=== PATIENT | female | born 1970 | race Caucasian/White ===

== ENCOUNTER 2024-05-09 16:23 | Emergency (ER) | payer BC, SELFPAY ==
[2024-05-09 16:24] VITALS: BP 123/82
--- NOTE | 2024-05-09 16:47 | ED.GENMED ---
History of Present Illness
General
Chief Complaint: Flank Pain
Source: patient
Time Seen by Provider: 05/09/24 16:30
History of Present Illness
History of Present Illness:
53 year old female with no significant PMH who presents to the ER for evaluation of left lower flank/abdominal pain that started initially on Thursday as pain in the right flank only, no other symptoms thursday but now with nausea, pain 3/10,
non-radiating, constant, sharp and waxes/wanes. 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 Denies history of similar but does note a previous right sided pyelonephritis. Denies any other symptoms including fevers, chills, rigors, dysuria, urinary
frequency/urgency, hematuria, vomiting, bowel changes or any other concerns.
Past History
Past History
ED Past Medical History: Cancer (basal cell CA); Negative Asthma, HTN, Hypercholesterolemia or NIDDM
ED Past Surgical History: None
Social History
Tobacco: Non-smoker
Alcohol: Occasional
Drug: None
Personal: Other (Seperated)
Living: with family
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
Family History
Family History: Other (reviewed and non-contributory)
Review of Systems
Review of Systems
All Other Systems: ROS reviewed and negative except as documented in HPI and ROS
Phy Exam
Physical Exam
Physical Exam:
GENERAL: Alert , in no apparent distress but does look quite uncomfortable
EYE: clear conjunctiva b/l
HEAD: NCAT
ENT: mmm.
CARDIAC: Regular rate and rhythm .
LUNGS: Clear breath sounds bilaterally, no acute respiratory distress, no wheezes/rales/rhonchi
ABDOMEN: Soft, without focal tenderness, no r/g, mild left CVA ttp
NEUROLOGICAL: Alert and oriented
SKIN: Warm and dry, skin intact.
MUSCULOSKELETAL: No edema, well perfused.
PSYCH: Normal and appropriate interaction.
Scores
Heart Failure Risk
Heart Failure Risk Score: Not Applicable
Heart Score for Chest Pain Patients
STEMI patient?: Not applicable
Withdrawal Assessment of Alcohol
Withdrawal Assessment Completed?: Not applicable
Course
Orders/Labs/Results
Orders:
Orders
05/09/24 16:30
Test Result ONCE
05/09/24 16:45
CT Abd/pel Without Iv Or Oral Urgent
Comment:
Reason For Exam: left back/flank pain, nausea
0.9% Sodium Chloride 1000 ml [Nss] 1,000 ml IV BOLUS
Ketorolac [Toradol] 30 mg IV NOW STA
Ondansetron Injectable [Zofran] 4 mg IV NOW STA
05/09/24 16:58
Complete Blood Count/With Diff Urgent
Comprehensive Metabolic Panel Urgent
Lipase Urgent
05/09/24 17:50
Morphine Sulfate 2 mg .ROUTE .STK-MED ONE
Morphine Sulfate 2 mg IV NOW STA
05/09/24 19:11
Urinalysis Reflex To Culture Urgent
Date Specimen was Collected: 05/09/24
Time Specimen was Collected: 17:05
Abnormal Lab Results
05/09/24
16:58
WBC 3.7 L 10^3/uL
(4.8-10.8)
RBC 3.89 L 10^6/uL
(4.20-5.40)
Hct 35.1 L %
(37.0-47.0)
MCH 31.1 H pg
(27.0-31.0)
Monocytes % 9.8 H %
(1.7-9.3)
Glucose 100 H mg/dl
(70-99)
Total Protein 6.2 L g/dl
(6.3-8.2)
05/09/24 16:58
05/09/24 16:58
Vital Signs
Initial and Last Documented VS:
Initial Vital Signs
Temp Pulse Resp BP Pulse Ox
98.0 F 67 16 123/82 98
05/09/24 16:24 05/09/24 16:24 05/09/24 16:24 05/09/24 16:24 05/09/24 16:24
Last Documented Vital Signs
Temp Pulse Resp BP Pulse Ox
98.0 F 59 16 101/69 98
05/09/24 16:24 05/09/24 20:34 05/09/24 20:34 05/09/24 20:34 05/09/24 20:34
MDM/Problems Addressed
Differential Diagnosis Includes:
renal/ureteral colic, pyelonephritis, musculoskeletal back pain
MDM/Problems Addressed:
53-year-old female presenting to the emergency department for evaluation of left-sided flank pain, symptoms started on Thursday, relieved on Thursday and Thursday but then restarted again this morning and now accompanied with nausea. Based off
description of pain as well as location of suspected renal/ureteral colic to be the most likely diagnosis. Will check labs, urine and CT imaging. Pain control with Toradol, Zofran and fluids. Reassessment following.
*Radiology
Radiology exam reviewed: radiology read reviewed
*Pulse Oximetry
Patient hypoxic: no
*Critical Care Note
Total Time (30-74mins, 75-104mins- exclusive of procedures): Not Applicable
Patient Management
Escalation/DeEscalation of care consider admission/obs:
Patient CT scan shows no acute surgical complications nor kidney stones. There is large volume stool throughout the colon. Urinalysis without signs of infection. Patient's pain improved. Stable for discharge home and outpatient management.
Aware of return precautions to the ER.
ED Attending Note
-
Portions of this chart may have been created with voice recognition software.� Occasional wrong word or��sound alike� substitutions may have occurred due to the inherent limitations of voice recognition software.
Discharge Plan
Departure
Patient Disposition: Home (Routine Discharge)
Date of Disposition: 05/09/24
Time of Disposition: 19:23
Patient with high blood pressure during this ER visit?: No
Discharge Problem:
Abdominal pain
Instructions: Abdominal Pain
Prescriptions:
No Action
melatonin 3 MG tablet
3 mg PO HSPRN PRN (Reason: sleep)
cephalexin 500 MG capsule
500 mg PO QID Qty: 34 0RF
rizatriptan 10 MG tablet,disintegrating
10 mg PO DAILY PRN (Reason: severe headache) Qty: 10 0RF
Rx Instructions:
do not take more than 3 tabs in 24 hours
nitrofurantoin monohyd/m-cryst 100 MG capsule
100 mg PO BID Qty: 10 0RF
phenazopyridine 200 MG tablet
200 mg PO TID Qty: 20 0RF
levofloxacin 500 MG tablet
500 mg PO DAILY Qty: 7 0RF
Referrals:
NONE,* [Family Provider] -
Interventions
Interventions:
*Risk Screen - Suicide Last Done: 05/09/24 16:24
*General Assessment Last Done: 05/09/24 17:06
*Neglect/Abuse Screening Last Done: 05/09/24 16:24
ED- Fall Risk Assessment Last Done: 05/09/24 17:06
*Nursing Disposition Last Done: 05/09/24 20:41
RN-Zfbpxg-Mppfsqwvgu Assessment Last Done: 05/09/24 17:06
ED-Female Genitourinary Assessment Last Done: 05/09/24 17:06
Discharge Date and Time
Discharge Date/Time: 05/09/24 20:43
Print Language: SLOVENIAN
[2024-05-09] MEDS: ZOFRAN 4 MG IV (17:00)
[2024-05-09] MEDS: NSS 1000 IV (17:00)
[2024-05-09] MEDS: TORADOL 30 MG IV (17:01)
[2024-05-09 17:08] LABS: % Basophils 0.5 % (0-2); % Eosinophils 1.6 % (0-6); % Immature Granulocytes 0.3 % (0-0.5); % Lymphocytes 39.1 % (20.5-51.1); % Monocytes 9.8 % (1.7-9.3); % Neutrophils 48.7 % (42.2-75.2); Absolute Eosinophils 0.1 10^3/uL (0-0.7); Absolute Lymphocytes 1.4 10^3/uL (1.2-3.4); Absolute Monocytes 0.4 10^3/uL (0.1-0.6); Absolute Neutrophils 1.8 10^3/uL (1.4-6.5); Hematocrit 35.1 % (37.0-47.0); Hemoglobin 12.1 g/dL (12.0-16.0); Mean Corp Hgb Conc. 34.5 g/dL (33.0-37.0); Mean Corpuscular Hgb 31.1 pg (27.0-31.0); Mean Corpuscular Volume 90.2 fL (81.0-99.0); Nucleated Red Blood Cells % 0 %; Platelet Count 237 10^3/uL (130-400); Red Blood Cell Count 3.89 10^6/uL (4.20-5.40); Red Cell Dist. Width 12.8 % (11.5-14.5); White Blood Cell Count 3.7 10^3/uL (4.8-10.8)
[2024-05-09 17:43] LABS: ALT (SGPT) 28 U/L (0-35); AST (SGOT) 36 U/L (14-36); Albumin 4.1 g/dl (3.5-5.0); Alkaline Phosphatase 90 U/L (38-126); Blood Urea Nitrogen 17 mg/dl (7-17); Calcium 9.5 mg/dl (8.4-10.2); Carbon Dioxide 25 mmol/L (22-30); Chloride 105 mmol/L (98-107); Glucose 100 mg/dl (70-99); Lipase 79 U/L (23-300); Potassium 4.3 mmol/L (3.5-5.1); Sodium 140 mmol/L (135-145); Total Bilirubin 0.3 mg/dl (0.2-1.3); Total Protein 6.2 g/dl (6.3-8.2); eGFR > 60.00
[2024-05-09] MEDS: MORPHINE SULFATE 2 MG IV (17:51)
[2024-05-09 18:11] VITALS: BP 120/74
[2024-05-09 19:17] LABS: Urine Albumin Negative (Neg - Trace); Urine Bilirubin Negative (Negative); Urine Character Clear (Clear); Urine Color Yellow; Urine Glucose Negative (Negative); Urine Ketone Negative (Negative); Urine Leukocyte Negative (Negative); Urine Nitrite Negative (Negative); Urine Occult Blood Negative (Negative); Urine Urobilinogen Negative (Neg - 1+); Urine pH 6.5 (5.0-9.0)
[2024-05-09 20:34] VITALS: BP 101/69
== END 2024-05-09 20:43 | disposition home or self-care (01) ==
LOC: EMR 16:23
PROVIDERS: Physician Assistant Medical; EMERGENCY PHYSICIAN Emergency Medicine
DX: R10.32 Left lower quadrant pain (principal); R11.0 Nausea; Z85.828 Personal history of other malignant neoplasm of skin
CPT/HCPCS: 99284; 96374; 96375 ×2; 96361; 74176; 80053; 81003; 83690; 85025

== ENCOUNTER → 2024-05-30 09:20 | Outpatient (REF) | payer BC, SELFPAY | LOC: RAD 09:20 | PROVIDERS: ATTENDING PHYSICIAN Nurse Practitioner Family | DX: Z76.89 Persons encountering health services in other specified circumstances (principal); R10.84 Generalized abdominal pain; R11.0 Nausea; Z09 Encounter for follow-up examination after completed treatment for conditions other than malignant neoplasm | CPT/HCPCS: 74221 ==

== ENCOUNTER → 2024-11-03 16:21 | Outpatient (REF) | payer BC, SELFPAY | LOC: RAD 16:21 | PROVIDERS: ATTENDING PHYSICIAN Nurse Practitioner Family | DX: R22.41 Localized swelling, mass and lump, right lower limb (principal) | CPT/HCPCS: 76882 ==

== ENCOUNTER → 2024-11-15 15:36 | Outpatient (REF) | payer BC, SELFPAY | LOC: RAD 15:36 | PROVIDERS: ATTENDING PHYSICIAN Nurse Practitioner Family | DX: R22.41 Localized swelling, mass and lump, right lower limb (principal) | CPT/HCPCS: 73552 ==

== ENCOUNTER → 2024-11-24 13:45 | Outpatient (REF) | payer BC, SELFPAY | LOC: PAVMRI 13:45 | PROVIDERS: ATTENDING PHYSICIAN Nurse Practitioner Family | DX: R22.41 Localized swelling, mass and lump, right lower limb (principal) | CPT/HCPCS: 73720; A9575 ==

== ENCOUNTER → 2024-12-13 09:30 | Outpatient (REF) | payer BC, SELFPAY ==
[2024-12-13 09:56] VITALS: BP 105/75; BP_SYST 66
[2024-12-13 11:25] VITALS: BP 109/86; BP_SYST 57
[2024-12-13 11:30] VITALS: BP 107/82; BP_SYST 61
[2024-12-13 11:40] VITALS: BP 109/80; BP_SYST 61
== END ==
LOC: RADI 09:30
PROVIDERS: ATTENDING PHYSICIAN Surgery
DX: D21.21 Benign neoplasm of connective and other soft tissue of right lower limb, including hip (principal)
CPT/HCPCS: 88305; 20206; 76942; 88333; 99152; 99153

== ENCOUNTER 2025-02-27 06:18 | Day surgery (SDC) | payer BC, SELFPAY | END 2025-02-27 14:37 | disposition home or self-care (01) | LOC: GI 06:18 | PROVIDERS: ATTENDING PHYSICIAN Internal Medicine | DX: Z12.11 Encounter for screening for malignant neoplasm of colon (principal); D12.5 Benign neoplasm of sigmoid colon | CPT/HCPCS: 45385; 88305 ==

== ENCOUNTER → 2025-04-06 15:57 | Outpatient (REF) | payer BC, SELFPAY | LOC: RCS 15:57 | PROVIDERS: ATTENDING PHYSICIAN Internal Medicine Cardiovascular Disease; FAMILY PHYSICIAN Nurse Practitioner Family | DX: R01.1 Cardiac murmur, unspecified (principal); Z91.89 Other specified personal risk factors, not elsewhere classified | CPT/HCPCS: 93306 ==